=== PATIENT | female | born 1995 | race Caucasian/White ===

== ENCOUNTER 2020-01-11 22:09 | Emergency (ER) | payer OTHER ==
[~2020-01-11] VITALS: Ht 162.6 cm; Wt 56.8 kg
[2020-01-11] MEDS ORDERED: METHOCARBAMOL 750 MG TABLET PO ONE (23:30)
[2020-01-11] MEDS ORDERED: KETOROLAC 30 MG/1 ML IM ONE (23:30)
[2020-01-11] MEDS ORDERED: KETOROLAC 30 MG/1 ML ONE (23:35)
[2020-01-11] MEDS ORDERED: METHOCARBAMOL 750 MG TABLET ONE (23:35)
[2020-01-12 00:42] VITALS: BP 114/80
== END 2020-01-12 00:50 | disposition home or self-care (01) ==
LOC: ED 23:30
DX: M54.6 Pain in thoracic spine (principal)
CPT/HCPCS: 93005; 96372; 99283; J1885

== ENCOUNTER 2020-06-05 10:02 | Outpatient (CLI) | payer OTHER | END 2020-06-05 23:59 | disposition home or self-care (01) | LOC: CARD 10:02 | PROVIDERS: ATTEND Physician Assistant Medical | DX: G56.01 Carpal tunnel syndrome, right upper limb (principal); G56.93 Unspecified mononeuropathy of bilateral upper limbs | CPT/HCPCS: 95886; 95908 ==